=== PATIENT | female | born 1970 | race American Indian/Alaskan Native ===

== ENCOUNTER 2019-06-16 05:59 | Day surgery (SDC) | payer MEDICAID ==
[~2019-06-16 05:59] MED LIST: LACTATED RINGERS 1,000 ML IV SCH
[2019-06-16] MEDS ORDERED: NEURONTIN PO NR ×2 (06:00→07:30)
[2019-06-16] MEDS ORDERED: VERSED IV NR (06:00)
[2019-06-16] MEDS ORDERED: SUBLIMAZE IV PRN (06:00)
[2019-06-16] MEDS ORDERED: NACL BACTERIOSTATIC INFILTRATI ONE (06:43)
[2019-06-16] MEDS ORDERED: VANCOMYCIN/NS 1 GM/250 ML 1 GM/250 ML BAG IV NR (07:00)
--- NOTE | 2019-06-16 07:07 | Anesthesia Day of Surgery ---
Anesthesia Day of Surgery - Day of Surgery Patient Examined: Yes Patient H&P Reviewed: Yes Patient is NPO: Yes
--- NOTE | 2019-06-16 07:07 | Anesthesia Consultation ---
Anesthesia Consult and Med Hx Date of service: 06/16/19 - Airway Anesthetic Teeth Evaluation: Good ROM Head & Neck: Adequate Mental/Hyoid Distance: Adequate Mallampati Class: Class I Intubation Access Assessment: Good - Pulmonary Exam CTA: Yes - Cardiac Exam Cardiac Exam: RRR - Pre-Operative Health Status ASA Pre-Surgery Classification: ASA1 Proposed Anesthetic Plan: General - Pulmonary Hx Smoking: No Hx Respiratory Symptoms: No - Cardiovascular System Hx Hypertension: No Hx Heart Attack/AMI: No Hx Percutaneous Transluminal Coronary Angioplasty (PTCA): No - Central Nervous System Hx Seizures: No CVA: No Hx Psychiatric Problems: No - Gastrointestinal Hx Gastroesophageal Reflux Disease: No - Endocrine Hx Renal Disease: No Hx Liver Disease: No Hx Insulin Dependent Diabetes: No Hx Non-Insulin Dependent Diabetes: No Hx Thyroid Disease: No - Other Systems Hx Obesity: No - Additional Comments Anesthesia Medical History Comments: No hx anesthetic complications.
[2019-06-16] MEDS ORDERED: DILAUDID IV PRN (07:08)
[2019-06-16] MEDS ORDERED: MARCAINE 0.5% INFILTRATI ONE ×2 (07:17→08:15)
[2019-06-16] MEDS ORDERED: XYLOCAINE 1% 20 mL ONE (07:17)
[2019-06-16] MEDS ORDERED: NEURONTIN ONE (07:21)
[2019-06-16] MEDS ORDERED: DILAUDID ONE (07:29)
[2019-06-16] MEDS ORDERED: DIPRIVAN 10 MG/ML IV ONE (07:29)
[2019-06-16] MEDS ORDERED: ZEMURON IV ONE (07:29)
[2019-06-16] MEDS ORDERED: XYLOCAINE MPF 2% ONE (07:29)
[2019-06-16] MEDS ORDERED: DECADRON ONE (07:30)
[2019-06-16] MEDS ORDERED: ZOFRAN ONE (07:30)
[2019-06-16] MEDS ORDERED: NACL 0.9% IR ONE (08:16)
[2019-06-16] MEDS ORDERED: XYLOCAINE 1% 20 mL INFILTRATI ONE (08:16)
[2019-06-16] MEDS ORDERED: WATER FOR IRRIG STERILE IR ONE (09:05)
[2019-06-16] MEDS ORDERED: BLOXIVERZ ONE (09:41)
[2019-06-16] MEDS ORDERED: ROBINUL ONE (09:41)
--- NOTE | 2019-06-16 10:14 | Short Stay Summary ---
Short Stay Documentation Date of service: 06/16/19 - History Principal diagnosis: ventral hernia H&P: obtained from office - Allergies and Medications Current Medications: Allergies clindamycin Allergy (Verified 06/08/19 19:23) Lip Swells erythromycin base Allergy (Verified 06/08/19 19:23) Hives Penicillins Allergy (Verified 06/08/19 19:23) Hives Home Medications Medication Instructions Recorded Confirmed Last Taken Type Multivit-Minerals/Ferrous Gluc 9 mg PO QDAY 06/08/19 06/16/19 05/16/19 History [Centrum Multivit-Mineral Liq] Active Medications Gabapentin (Neurontin) 300 mg PO PREOP NR Stop: 06/16/19 13:00 Last Admin: 06/16/19 07:21 Dose: 300 mg Documented by: Hydromorphone HCl (Dilaudid) 0.5 mg IV Q10MIN PRN PRN Reason: Pain , Severe (7-10) Stop: 06/16/19 20:00 Lactated Ringer's (Lactated Ringers) 1,000 mls @ 100 mls/hr IV DIRECT LAWRENCE Last Admin: 06/16/19 06:45 Dose: 100 mls/hr Documented by: Vancomycin HCl (Vancomycin/Ns 1 Gm/250 Ml) 1 gm in 250 mls @ 167.007 mls/hr IV PREOP NR; Protocol Stop: 06/16/19 23:45 Last Admin: 06/16/19 07:22 Dose: 167.007 mls/hr Documented by: Midazolam HCl (Versed) 2 mg IV PREOP NR Stop: 06/16/19 23:00 Last Admin: 06/16/19 07:28 Dose: 2 mg Documented by: - Brief post op/procedure progress note Date of procedure: 06/16/19 Pre-op diagnosis: ventral hernia Post-op diagnosis: other (ventral and umbilical hernia) Procedure: robotic assisted ventral hernia repair with mesh Anesthesia: GETA, local Findings: 1.5 cm x 1 cm supraumbilical midline hernia containing large amount of preperitoneal fat along with 0.5 cm umbilical hernia containing minimal fat. Total hernia area 3 cm x 1.[address] 11.4 cm mesh used to fix hernia Surgeon: JIMMIE MULLIGAN Occupational Therapist Per Diem: RAUDEL MONTOYA Estimated blood loss: minimal Pathology: none Condition: stable - Hospital course Hospital course: Pt observed in PACU and discharged to home in stable condition when criteria met - Disposition Condition at discharge: Good Disposition: DC-01 TO HOME OR SELFCARE Short Stay Discharge Plan Activity: other (NO HEAVY LIFTING, NOTHING MORE THAN 15 LBS. NO DRIVING IF TAKING PRESCRIPTION NARCOTIC PAIN MEDICATIONS) Diet: regular Wound: open to air, other (KEEP ABDOMINAL BINDER ON AT ALL TIMES EXCEPT DURING SHOWER AND MAY REMOVE WHEN SLEEPING) Additional Instructions: SEE PRINTED DISCHARGE INSTRUCTIONS Follow up with: SUSAN LUDWIG MD [Primary Care Provider] - 7 Days JIMMIE MULLIGAN DO [Staff Physician] - 14 Days Prescriptions: Ibuprofen [Motrin 800 MG tab] 800 mg PO Q8HR #30 tablet oxyCODONE /ACETAMINOPHEN [Percocet 5/325] 1 tab PO Q4HR PRN #20 tab PRN Reason: Pain , Severe (7-10)
[2019-06-16 11:01] VITALS: BP 127/67
--- NOTE | 2019-06-16 11:16 | Post Anesthesia Evaluation ---
- Post Anesthesia Evaluation Patient Participated: Yes Airway Patent: Yes Stable Respiratory Function: Yes Nausea/Vomiting: No Temp > 96.8F: Yes Pain Manageable: Yes Adequeate Hydration: Yes Anesthesia Complications: No
--- NOTE | 2019-06-17 14:59 | Operative Report ---
Operative Report Operative Report: Date of procedure: 06/16/19 Pre-op diagnosis: ventral hernia Post-op diagnosis: other (ventral and umbilical hernia) Procedure: robotic assisted ventral hernia repair with mesh Anesthesia: SARA local Findings: 1.5 cm x 1 cm supraumbilical midline hernia containing large amount of preperitoneal fat along with 0.5 cm umbilical hernia containing minimal fat. Total hernia area 3 cm x 1.[address] 11.4 cm mesh used to fix hernia Surgeon: JIMMIE MULLIGAN Fabric Worker Supervisor: RAUDEL MONTOYA Estimated blood loss: minimal Pathology: none Condition: stable - Hospital course Hospital course: Pt observed in PACU and discharged to home in stable condition when criteria met HPI and indication: 49 yo F who was referred to surgery clinic for evaluation of hernia. The patient was found to have a supraumbilical ventral hernia which was reducible. Surgical repair was recommended. All risks, benefits, alternatives to surgery were discussed with the patient and questions answered. Consent was obtained. Procedure in detail: The patient was identified in the preoperative area and taken back to the operating room and placed on the operating room table in supine position. After anesthesia was induced both arms were tucked with adequate padding. The abdomen was then prepped and draped in usual sterile fashion and a timeout was performed. Local anesthetic was infiltrated into all skin incision sites. A stab incision was made in the left upper quadrant Wright's point through which a veress needle was inserted. The position of the veress needle was confirmed using the saline drop test. The abdomen was insufflated to 15 mmHg. A small incision was made in the right upper quadrant inferior to the costal margin through which a 5 mm Optiview trocar was placed. Abdomen was inspected and there was no underlying injury to any of the abdominal contents. A Veress needle was removed. The patient was placed in reverse jackknife position and tilted towards the left. An 8 mm robotic trocar was placed under direct visualization in the right lower quadrant. A 12 mm balloon trocar was placed in the right mid abdomen laterally. The 5 mm right upper quadrant trocar was replaced with an 8 mm robotic trocar under direct visualization. The robot was then docked in the usual fashion. A history of bipolar grasper was placed in arm #2 and a monopolar scissor in arm #1. The surgeon was then transferred to the consult. The super umbilical ventral hernia was clearly visualized. The falciform ligament was first cauterized and divided. I then created a preperitoneal flap starting from the right of the midline approximately 5 cm from the hernia defect. The peritoneum was scored and the flap created in an avascular plane using accommodation blood dissection and electrocautery. Once the hernia was encountered the hernia sac and hernia contents were reduced. There was a large amount of preperitoneal fat contained within the hernia. Once all hernia contents were reduced the peritoneal flap was carried over to the left side in order to facilitate placement of mesh. The peritoneum was particularly thin on the left side and air was a tear seen. During creation of the flap, a very small umbilical hernia was also encountered with a tiny bit of incarcerated fat. This fat was reduced. The supraumbilical ventral hernia defect measured approximately 1.5 cm x 1 cm. The umbilical hernia defect measured less than 0.5 cm. The total hernia area was 3 cm x 1.5 cm and therefore ventralight ST composite 11.4 cm mesh was chosen to fix the hernia. The mesh along with suture material was placed into the abdomen gives a 12 mm port. The abdominal pressure was decreased to 8 mmHg. The hernia defect was first closed using a running 0-V lock suture. The pocket was checked for hemostasis which was carefully ensured. The mesh was then unrolled and placed into the preperitoneal space. The coated side was placed facing the bowel. The mesh was sutured in 3 locations using 2-0 Vicryl interrupted sutures. The peritoneum was then reapproximated using a running 3-0 V lock suture. All needles were placed and secured in position. The robot was undocked and the surgeon scrubbed back in. The remainder of the case was performed laparoscopically. All needle and excess suture material was removed under direct visualization. The abdomen is inspected and there was no foreign objects left in the abdomen. The 12 mm port was removed and the fascia closed with interrupted 0 Vicryl sutures using the Willam Zeng device. The remaining ports were then removed under direct visualization and the abdomen fully desufflated. The skin incisions were once again infiltrated with local anesthetic and closed with 4-0 Monocryl subcuticular stitches and skin glue. At the end of the case, all sponge, instrument, sharp counts were correct 2. The patient was awoken from anesthesia, extubated and taken to PACU in stable condition. An abdominal binder was applied.
== END 2019-06-16 11:30 | disposition home or self-care (01) ==
LOC: OR 05:59
PROVIDERS: ATTEND Surgery
DX: K43.9 Ventral hernia without obstruction or gangrene (principal); K42.9 Umbilical hernia without obstruction or gangrene; Z79.899 Other long term (current) drug therapy; Z88.0 Allergy status to penicillin; Z98.890 Other specified postprocedural states; Z88.8 Allergy status to other drugs, medicaments and biological substances
CPT/HCPCS: 49653; 81025; C1781; J1100; J1170; J2250; J2405; J2704; J2710; J3370; J7120; S2900